=== PATIENT | female | born 1945 | race Caucasian/White ===

== ENCOUNTER 2022-02-12 09:24 | Day surgery (SDC) | payer MEDICARE ==
[2022-02-11 13:37] LABS: BASOPHILS % (AUTO) 0.9 % (0.0-5.0); EOSINOPHILS % (AUTO) 1.8 % (0.0-8.0); LYMPHOCYTES % (AUTO) 21.9 % (21.0-51.0); MEAN CORPUSCULAR HEMOGLOBIN 29.8 pg (27.0-33.0); MEAN CORPUSCULAR HGB CONC 31.5 g/dL (32.0-36.0); MEAN CORPUSCULAR VOLUME 94.6 fL (79-99); NEUTROPHILS % (AUTO) 64.2 % (40.0-77.0); PLATELET COUNT (AUTO) 217 K/uL (130-400); RED BLOOD CELL COUNT(AUTO) 4.23 MIL/uL (4.00-5.50); RED CELL DISTRIBUTION WIDTH 14.7 % (11.0-15.5); WHITE BLOOD COUNT (AUTO) 5.5 K/uL (4.8-10.8)
[2022-02-11 13:53] VITALS: BP 130/64
[2022-02-11 13:55] LABS: APPEARANCE,URINE Clear (CLEAR); BILIRUBIN,URINE Negative (NEGATIVE); COLOR,URINE Yellow (YELLOW); GLUCOSE, URINE (UA) Negative (NEGATIVE); KETONES,URINE Negative (NEGATIVE); LEUKOCYTE ESTERASE ,URINE Negative (NEGATIVE); NITRATE,URINE Negative (NEGATIVE); OCCULT BLOOD,URINE Negative (NEGATIVE); PH,URINE 6.5 (5.0-8.0); PROTEIN,URINE Negative (NEGATIVE); UROBILINOGEN,URINE 0.2 mg/dL (0.2-1.0)
[2022-02-11 13:57] LABS: CREATININE 0.8 mg/dL (0.5-1.5); POTASSIUM 4.2 mmol/L (3.5-5.1)
[2022-02-11 13:58] LABS: INR 2.58 (0.85-1.15); PROTHROMBIN TIME 25.8 SEC (9.6-11.6)
[2022-02-12] VITALS (21 sets, daily range): BP systolic 106–138; BP diastolic 50–68
[~2022-02-12] VITALS: Ht 172.7 cm; Wt 70.5 kg
[~2022-02-12 09:24] MED LIST: 0.9% NACL 500ML IV.SOLN 500 ML IV SCH; AEC81 PO; ALEN70TA80 PO; CALCIUM PO; CHOL2000 PO; DILT120C95 PO; FURO20TA6 PO; GLUC-29 PO; LEVO125T11 PO; POTASSIUM PO; SENN-107 PO; SOTA80TA PO; TUMERIC PO; UBID100C45 PO; WARF-57 PO
[2022-02-12] MEDS ORDERED: 0.9%NACL 1000ML 1,000 ML IV ONE (12:51)
[2022-02-12 12:53] LABS: INR 1.96 (0.85-1.15); PROTHROMBIN TIME 20.1 SEC (9.6-11.6)
[2022-02-12] MEDS ORDERED: NITROGLYCERIN 50MG VIAL ONE (14:23)
[2022-02-12] MEDS ORDERED: SODIUM BICARB 50MEQ 50ML VIAL 50 ML ONE (14:23)
[2022-02-12] MEDS ORDERED: IOHEXOL-350 50ML VIAL IV ONE (14:23)
[2022-02-12] MEDS ORDERED: MIDAZOLAM HCL 1 MG/ML 2ML VIAL ONE (14:24)
[2022-02-12] MEDS ORDERED: IOHEXOL 350 MG/ML 100ML INFUS..BTL IV ONE (14:24)
[2022-02-12] MEDS ORDERED: FENTANYL CITRATE PF 50 MCG/1 ML 2ML VIAL ONE (14:24)
[2022-02-12] MEDS ORDERED: LIDOCAINE HCL 400MG/20ML VIAL ONE (14:25)
[2022-02-12] MEDS ORDERED: FLUMAZENIL 0.1MG/1ML 5ML VIAL IV ONE (15:43)
[2022-02-12] MEDS ORDERED: 0.9% NACL 500ML IV.SOLN 500 ML IV SCH (16:00)
== END 2022-02-12 19:58 | disposition home or self-care (01) ==
LOC: DAH 09:24
PROVIDERS: ATTEND Internal Medicine Cardiovascular Disease
DX: I25.10 Atherosclerotic heart disease of native coronary artery without angina pectoris (principal); I27.20 Pulmonary hypertension, unspecified; I48.91 Unspecified atrial fibrillation; I50.32 Chronic diastolic (congestive) heart failure; E03.9 Hypothyroidism, unspecified; E11.9 Type 2 diabetes mellitus without complications; I25.2 Old myocardial infarction; Z79.01 Long term (current) use of anticoagulants; Z95.2 Presence of prosthetic heart valve; Z88.6 Allergy status to analgesic agent; Z88.8 Allergy status to other drugs, medicaments and biological substances; Z88.1 Allergy status to other antibiotic agents; Z86.73 Personal history of transient ischemic attack (TIA), and cerebral infarction without residual deficits; Z86.16 Personal history of COVID-19; Z90.710 Acquired absence of both cervix and uterus; Z79.899 Other long term (current) drug therapy; Z98.890 Other specified postprocedural states; Z82.49 Family history of ischemic heart disease and other diseases of the circulatory system
CPT/HCPCS: 36415 ×2; 71045; 80048; 81003; 82948 ×2; 85025; 85610 ×2; 85730 ×2; 93005; 93460; A4215; A4216; A4221; A4222; A4223 ×3; A4606; A4663; C1760 ×2; C1769; C1894 ×3; J1644 ×2; J2250; J3010; J3490 ×4; J7030; Q9965; Q9967 ×2; 99156; 99157

== ENCOUNTER → 2022-12-18 | Outpatient (CLI) | payer MEDICARE ==
[~2022-12-18] MED LIST changes: -0.9% NACL 500ML IV.SOLN 500 ML IV SCH
[2022-12-18 12:34] LABS: CREATININE 0.9 mg/dL (0.5-1.5); POTASSIUM 3.9 mmol/L (3.5-5.1)
== END | disposition home or self-care (01) ==
LOC: LAB 10:02
PROVIDERS: ATTEND Internal Medicine Cardiovascular Disease
DX: I27.20 Pulmonary hypertension, unspecified (principal); I48.0 Paroxysmal atrial fibrillation
CPT/HCPCS: 36415; 80048; 83880

== ENCOUNTER 2023-10-23 14:52 | Emergency (ER) | payer MEDICARE ==
[~2023-10-23] VITALS: Ht 170.2 cm; Wt 69.4 kg
[2023-10-23 18:55] VITALS: BP 145/82; PULSE 75; RESP 16; O2SAT 97
== END 2023-10-23 18:56 | disposition home or self-care (01) ==
LOC: EDH 14:52
DX: S09.8XXD Other specified injuries of head, subsequent encounter (principal); Z48.02 Encounter for removal of sutures; X58.XXXD Exposure to other specified factors, subsequent encounter
CPT/HCPCS: 99281

== ENCOUNTER → 2024-11-15 | Outpatient (CLI) | payer MEDICARE ==
[2024-11-15 12:26] LABS: BASOPHILS # (AUTO) 0.06 K/uL (0.00-0.20); BASOPHILS % (AUTO) 0.8 % (0.0-5.0); EOSINOPHILS # (AUTO) 0.38 K/uL (0.00-0.70); EOSINOPHILS % (AUTO) 5.3 % (0.0-8.0); HEMATOCRIT 42.2 % (36-48); IMMATURE GRANULOCYTE ABSOLUTE 0.02 K/uL (0-1); LYMPHOCYTES # (AUTO) 1.2 K/uL (1.0-4.8); LYMPHOCYTES % (AUTO) 16.8 % (21.0-51.0); MEAN CORPUSCULAR VOLUME 96.8 fL (79-99); MONOCYTES # (AUTO) 0.8 K/uL (0.1-1.0); MONOCYTES % (AUTO) 10.6 % (3.0-13.0); NEUTROPHILS # (AUTO) 4.7 K/uL (1.8-7.7); NEUTROPHILS % (AUTO) 66.2 % (40.0-77.0); PLATELET COUNT (AUTO) 216 K/uL (130-400); RED BLOOD CELL COUNT(AUTO) 4.36 MIL/uL (4.00-5.50); RED CELL DISTRIBUTION WIDTH 14.6 % (11.0-15.5); WHITE BLOOD COUNT (AUTO) 7.2 K/uL (4.8-10.8)
[2024-11-15 12:50] LABS: ALBUMIN 3.5 g/dL (3.5-5.0); BILIRUBIN,TOTAL 0.4 mg/dL (0.2-1.0); CREATININE 0.8 mg/dL (0.5-1.0); MAGNESIUM 2.2 mg/dL (1.80-2.40); POTASSIUM 4.2 mmol/L (3.5-5.1)
[2024-11-15 13:05] LABS: B-TYPE NATRIURETIC PEPTIDE 55 pg/mL (0-100)
== END | disposition home or self-care (01) ==
LOC: LAB 08:57
PROVIDERS: ATTEND Internal Medicine Cardiovascular Disease
DX: I48.0 Paroxysmal atrial fibrillation (principal); G47.33 Obstructive sleep apnea (adult) (pediatric); D68.59 Other primary thrombophilia; Z95.2 Presence of prosthetic heart valve; Z79.899 Other long term (current) drug therapy
CPT/HCPCS: 36415; 80053; 80061; 83735; 83880; 85025

== ENCOUNTER → 2025-01-30 | Outpatient (CLI) | payer MEDICARE ==
[2025-01-30 12:12] LABS: BASOPHILS # (AUTO) 0.07 K/uL (0.00-0.20); BASOPHILS % (AUTO) 1.2 % (0.0-5.0); EOSINOPHILS % (AUTO) 6.7 % (0.0-8.0); IMMATURE GRANULOCYTE ABSOLUTE 0.01 K/uL (0-1); LYMPHOCYTES # (AUTO) 1.6 K/uL (1.0-4.8); LYMPHOCYTES % (AUTO) 25.8 % (21.0-51.0); MEAN CORPUSCULAR HEMOGLOBIN 29.6 pg (27.0-33.0); MEAN CORPUSCULAR HGB CONC 32.1 g/dL (32.0-36.0); MEAN CORPUSCULAR VOLUME 92.1 fL (79-99); MONOCYTES # (AUTO) 0.8 K/uL (0.1-1.0); NEUTROPHILS # (AUTO) 3.2 K/uL (1.8-7.7); NEUTROPHILS % (AUTO) 53.1 % (40.0-77.0); PLATELET COUNT (AUTO) 224 K/uL (130-400); RED BLOOD CELL COUNT(AUTO) 4.67 MIL/uL (4.00-5.50); RED CELL DISTRIBUTION WIDTH 15.2 % (11.0-15.5)
== END | disposition home or self-care (01) ==
LOC: LAB 11:16
PROVIDERS: ATTEND Internal Medicine Cardiovascular Disease
DX: I48.0 Paroxysmal atrial fibrillation (principal); D68.59 Other primary thrombophilia
CPT/HCPCS: 36415; 85025

== ENCOUNTER 2025-11-06 19:08 | Emergency (ER) | payer MEDICARE ==
[~2025-11-06] VITALS: Ht 170.2 cm; Wt 68.9 kg
[2025-11-06 19:11] VITALS: BP 139/74
--- NOTE | 2025-11-06 19:18 | ERN ---
ED Note History of Present Illness Stated Complaint: C/O DIZZINESS WITH NEAR SYNCOPE EPISODE Chief Complaint: Dizzy/Light Headed Time Seen by MD: 19:10 Dictation: PATIENT IS AN 79-YEAR-OLD FEMALE HERE WITH HER WHO WAS WALKING IN HER HOME WHEN SHE HAD A NEAR SYNCOPAL EPISODE. SHE STATES SHE IS JUST SUDDENLY FELT VERY WEAK. SHE EASED HERSELF WITH THE GROUND WITHOUT A FALL. HE DENIES ANY VLADIMIR ST PAIN BACK PAIN SOB NO HEADACHE. DENIES ANY HISTORY OF PRIOR CVA, ANEMIA ELECTROLYTE IMBALANCE. 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 NIH SCORE IS 0 IN TRIAGE HE IS COMPLETELY INTACT TO ACCORDING TO . FEELS VERY LIGHTHEADED Allergies: Coded Allergies: Sulfa (Sulfonamide Antibiotics) (Unverified Allergy, Unknown, 12/29/21) codeine (Unverified Allergy, Unknown, 12/29/21) erythromycin base (Unverified Allergy, Unknown, 12/29/21) Home Meds Active Scripts Sotalol HCl (Sotalol) 80 Mg Tablet, 80 MG PO BID for 30 Days, #60 TAB 0 Refills Prov:KARAN PANIAGUA TEST AND BALANCE ENGINEER 01/02/22 Reported Medications Warfarin Sodium (Warfarin Sodium) 5 Mg Tablet, 2.5 MG PO DAILYDINNER, TAB 02/11/22 Sennosides/Docusate Sodium (Stool Softener Tablet) 1 Each Tablet, 1 EACH PO TID, TAB 02/11/22 Glucosa Ortega 2Kcl/Chondroitin Ortega (Glucosamine & Chondroitin Cap) 500 Mg-400 Mg Capsule, 1 EACH PO DAILY, CAP 02/11/22 [Tumeric] No Conflict Check, 1000 MG PO DAILY 02/11/22 Ubidecarenone (Co Q-10) 100 Mg Capsule, 100 MG PO DAILY, CAP 02/11/22 [Calcium] No Conflict Check, 1200 MG PO DAILY 02/11/22 [Potassium ] No Conflict Check, 99 MG PO DAILY 02/11/22 Furosemide (Lasix 20Mg Tab) 20 Mg Tablet, 20 MG PO DAILY, TAB 12/31/21 Alendronate Sodium (Alendronate Sodium) 70 Mg Tablet, 70 MG PO QWEEK, TAB 12/31/21 Cholecalciferol (Vitamin D3) (Vitamin D3) 50 Mcg (2000 Unit) Capsule, 50 MCG PO DAILY, CAP 12/31/21 Aspirin (ASPIRIN 81 MG ECTAB) 81 Mg Ectab, 81 MG PO DAILY, TAB.EC 12/31/21 Levothyroxine Sodium (Levothyroxine Sodium) 125 Mcg Tablet, 125 MCG PO DAILY, TAB 12/31/21 Diltiazem HCl (Diltiazem 24Hr Cd) 120 Mg Cap.er.24h, 120 MG PO DAILY, CAPSULE. 12/31/21 Past Medical History Past Medical History: Diabetes-Type II Additional Past Medical Hx: PACER Surgical History: Pacer/AICD, Other Surgical History Other: HEART VALVE REPLACEMENT Social History: Negative, Lives with family History: Not Applicable RN Note Reviewed/Agreed w/PFSH: Yes Review of System Dictation CONSTITUTIONAL: NEGATIVE EXCEPT FOR HPI HEAD/FACE: NEGATIVE EXCEPT FOR HPI EENT: NEGATIVE EXCEPT FOR HPI RESPIRATORY: NEGATIVE EXCEPT FOR HPI GASTROINTESTINAL/ABDOMINAL: NEGATIVE EXCEPT FOR HPI GENITOURINARY: NEGATIVE EXCEPT FOR HPI MUSCULOSKELETAL: NEGATIVE EXCEPT FOR HPI INTEGUMENTARY: NEGATIVE EXCEPT FOR HPI NEUROLOGICAL/PSYCH: NEGATIVE EXCEPT FOR HPI NEAR-SYNCOPE HEMATOLOGIC/LYMPHATIC: NEGATIVE EXCEPT FOR HPI ALL SYSTEMS NEGATIVE, EXCEPT NOTED ABOVE. 13 POINT REVIEW OF SYSTEMS ASSESSED AND ALL NEGATIVE EXCEPT FOR ABOVE. Initial Vital Sign VS Vital Signs Date Time Temp Pulse Resp B/P (MAP) Pulse Ox O2 Delivery O2 Flow Rate FiO2 11/06/25 19:11 98.8 63 20 139/74 99 Room Air 11/06/25 19:37 0 21 Physical Exam Dictation VITAL SIGNS REVIEWED GENERAL APPEARANCE: ALERT, ORIENTED X 3, NO ACUTE DISTRESS, WELL DEVELOPED, NOURISHED. MILDLY DECONDITIONED HEAD AND FACE: NON-TRAUMATIC. EYES: PERRL, PINK CONJUNCTIVAS, EYELID NO TRAUMA, ANTERIOR CHAMBER WITH ARCUS SENILIS. EARS: PINNAS INTACT AND NO SIGNS OF TRAUMA OR ERYTHEMA EAR CANALS CLEAR AND NO DISCHARGE TM NO ERYTHEMA NOSE: NO DISCHARGE, NO BLEEDING. OROPHARYNX: MOUTH NORMAL, TONGUE PINK, PHARYNX CLEAR,NO ERYTHEMA, TONSILS NO EXUDATES, NO ABSCESSES NOTED, MUCOUS MEMBRANE MOIST NECK: SUPPLE, NON-TENDER, NO THYROMEGALY, NO MASSES, NO JVD, NO BRUITS BREAST:DEFERRED CHEST:NO TENDERNESS, NO CREPITUS, NO PARADOXICAL MOVEMENT, NO RETRACTIONS LUNGS:CLEAR, WELL-VENTILATED, SYMMETRIC, NO RALES, NO WHEEZING, NO RHONCHI, NO STRIDOR, GOOD BREATH SOUNDS BILATERALLY HEART: REGULAR RATE, REGULAR RHYTHM, NO MURMUR, NO GALLOPS VASCULAR: NO PERIPHERAL EDEMA, ABDOMEN: SOFT, POSITIVE BOWEL SOUNDS, NONDISTENDED, NO GUARDING, NONTENDER, NO REBOUND, NO MASSES NO HEPATOMEGALY, NO SPLENOMEGALY, NO ADAME'S SIGN, NO HERNIAS. RECTAL: DEFERRED GENITAL: DEFERRED NEUROLOGICAL: NORMAL SPEECH, MOTOR FUNCTION INTACT, SENSORY FUNCTION INTACT NIH IS 0 MUSCULOSKELETAL: NECK NONTENDER, FULL RANGE OF MOTION, BACK NONTENDER, FULL RANGE OF MOTION, EXTREMITIES: NONTENDER, FULL RANGE OF MOTION SKIN: COLOR PINK, DRY, NO TURGOR, NO RASH, NO LACERATIONS, NO ABRASIONS, NO CONTUSIONS. LYMPHATIC: DEFERRED Results (Laboratory/Radiology) Laboratory/Radiology Laboratory Tests Test 11/06/25 19:27 White Blood Count 6.7 K/uL (4.8-10.8) Red Blood Count 4.61 MIL/uL (4.00-5.50) Hemoglobin 13.9 g/dL (12.0-16.0) Hematocrit 43.2 % (36-48) Mean Corpuscular Volume 93.7 fL (79-99) Mean Corpuscular Hemoglobin 30.2 pg (27.0-33.0) Mean Corpuscular Hemoglobin Concent 32.2 g/dL (32.0-36.0) Red Cell Distribution Width 15.1 % (11.0-15.5) Platelet Count 197 K/uL (130-400) Mean Platelet Volume 10.0 fL (7.5-10.5) Immature Granulocyte % (Auto) 0.3 % (0-1) Neutrophils (%) (Auto) 66.1 % (40.0-77.0) Lymphocytes (%) (Auto) 18.6 % (21.0-51.0) L Monocytes (%) (Auto) 10.3 % (3.0-13.0) Eosinophils (%) (Auto) 3.7 % (0.0-8.0) Basophils (%) (Auto) 1.0 % (0.0-5.0) Neutrophils # (Auto) 4.4 K/uL (1.8-7.7) Lymphocytes # (Auto) 1.3 K/uL (1.0-4.8) Monocytes # (Auto) 0.7 K/uL (0.1-1.0) Eosinophils # (Auto) 0.25 K/uL (0.00-0.70) Basophils # (Auto) 0.07 K/uL (0.00-0.20) Absolute Immature Granulocyte (auto 0.02 K/uL (0-1) Nucleated Red Blood Cells 0.0 % (0.0-0.19) Sodium Level 139 mmol/L (136-145) Potassium Level 4.1 mmol/L (3.5-5.1) Chloride Level 103 mmol/L (101-111) Carbon Dioxide Level 29 mmol/L (21-32) Blood Urea Nitrogen 18 mg/dL (7-18) Creatinine 0.8 mg/dL (0.5-1.0) Glomerular Filtration Rate Calc 74 mL/min (>90) Random Glucose 143 mg/dL (70-105) H Total Calcium 9.0 mg/dL (8.5-10.1) Magnesium Level 2.10 mg/dL (1.80-2.40) Troponin I High Sensitivity 97 ng/L (4-50) *H B-Type Natriuretic Peptide 48 pg/mL (0-100) EXAM: CR Chest, 1 View. CLINICAL HISTORY: SOB COMPARISON: None provided. FINDINGS: LUNGS: There is no mass, infiltrate, or acute pulmonary abnormality. Mild bibasilar atelectasis. PLEURAL SPACES: No pleural effusion or pneumothorax. MEDIASTINUM: AICD leads overlie the right atrium and right ventricle. Aortic valve noted. The cardiomediastinal silhouette is within normal limits. BONES: No acute osseous abnormality. IMPRESSION: No acute cardiopulmonary pathology is evident. /[place] N: DIZZINESS AND NEAR-SYNCOPE SUDDEN ONSET ORDERING PHYSICIAN: CHAD SALGADO PROCEDURE: HEAD WO - CT HEAD/BRAIN W/O CONTRAST EXAM: CT Head Without IV contrast. CLINICAL HISTORY: Dizziness and near-syncope. TECHNIQUE: Axial computed tomography images of the head/brain without intravenous contrast. COMPARISON: None provided. FINDINGS: BRAIN: Age-appropriate cerebral atrophy. Mild periventricular chronic small vessel ischemic changes. No evidence of acute hemorrhage. No mass lesion. No CT evidence for acute territorial infarct. No midline shift or extra-axial collections. VENTRICLES: No hydrocephalus. ORBITS: The orbits are unremarkable. SINUSES AND MASTOIDS: The paranasal sinuses and mastoid air cells are clear. BONES: No fracture. SOFT TISSUES: Unremarkable. IMPRESSION: No acute intracranial abnormality. Age-appropriate cerebral atrophy and chronic small vessel ischemic changes. /[facility] Reviewed?: Yes EKG Comment: 1921/EKG atrial fibrillation with controlled rate/ventricular rate 77//occasional PVCs. No acute changes. ED Course ED Course Orders Procedure Category Date Status Time Ct Head/Brain W/O CT 11/06/25 Resulted Contrast 19:15 B-Type Natriuretic LAB 11/06/25 Complete Peptide 19:15 Cbc With Differential LAB 11/06/25 Complete 19:15 Chest 1vw RAD 11/06/25 Resulted 19:15 12 Lead Ekg Tracing- EKG 11/06/25 Resulted Technical 19:15 0.9%Nacl 1000ml (Ns PHA 11/06/25 Complete 1000ml) 19:30 Magnesium LAB 11/06/25 Complete 19:15 Troponin I High LAB 11/06/25 Complete Sensitivity 19:15 Urinalysis Profile LAB 11/06/25 Logged 19:15 Basic Metabolic Panel LAB 11/06/25 Complete 19:15 Orthostatic Vital CPOE 11/06/25 Transmitted Signs 20:21 Current Medications Medications (Trade) Dose Ordered Sig/Wojciech Route PRN Reason Start Time Stop Time Status Last Admin Dose Admin Sodium Chloride 1,000 ml @ 0 mls/hr ONCE ONCE IV 11/06/25 19:30 11/06/25 19:31 DC 11/06/25 19:47 Vital Signs Date Time Temp Pulse Resp B/P (MAP) Pulse Ox O2 Delivery O2 Flow Rate FiO2 11/06/25 19:37 98.8 75 18 99 Room Air* 0 21 11/06/25 19:11 98.8 63 20 139/74 99 Room Air 2125/PATIENT IS HEMODYNAMICALLY STABLE AND NEUROLOGICALLY INTACT. SPOKE WITH THE RN TAKING CARE PATIENT AND ORTHOSTATICS WERE DONE AND THEY ARE NEGATIVE. WHILE I WAS SPEAKING TO THE HE ADVISED ME THAT PATIENT WAS USING A NEW MEDICATION ON HER FACE FOR ACTINIC KERATOSIS CALLED FLUOOURACIL. HE SAID HE HAS SPOKEN TO HIS DAUGHTER CARMEN WHO SAID SHE WOULD USE THAT ON HER SKIN FROM THE SAME EAR NOSE THROAT SURGEON IN [place] AND WAS EXPERIENCING MANY OF THE SYMPTOMS HER MOTHER WAS COMPLAINING OF. REVIEW OF THE LITERATURE DEMONSTRATES THAT UNUSUAL TIREDNESS WEAKNESS DIZZINESS ETC. HIS ALL A SIDE EFFECT OF THIS DRUG. PATIENT STATES SHE IS PLACING ON SEVERAL PLACES ON HER SKIN AND USING PROBABLY COOL MORE THAN SHE SHOULD BE DOING I STRONGLY ADVISED PATIENT TO HOLD HER DOSE IN THE MORNING AND CALL HER EAR NOSE THROAT SURGEON IN [place] AND DISCUSSED BEFORE SHE STARTED REUSING IT. SHE HAS BEEN ON IT FOR THREE WEEKS AND WAS ADVISED ONLY TO USE IT FOR 3-4 WEEKS. PATIENT WISHES TO BE DISCHARGED HOME AND NO ADMISSION WE WILL FINDINGS. ADDITIONALLY PATIENT HAD A TROPONIN OF 97. REVIEW OF THE MEDICAL RECORD SHOW HER TROPONINS BEEN HIGH 500 IN THE PAST. SHE IS NOT COMPLAINING OF ANY CHEST PAIN AND THIS DOES NOT REPRESENT ACS OR AMI. HEART Score Response (Comments) Value EKG: Repolarization changes 1 Age: > 65yrs (+2) 2 Risk Factors: 1-2 risk factors (+1) 1 Initial Troponin: 1-3x Normal Limit (+1) 1 Total 5 Medical Decision Making MDM MDM: DIFFERENTIAL DIAGNOSIS: CVA/BLEED/ELECTROLYTE IMBALANCE/DEHYDRATION/ACS/AMI/ARRHYTHMIA/ORTHOSTATIC CHANGES RATIONALE: TESTS CONSIDERED AND ORDERED SECONDARY TO SHARED DECISION MAKING INCLUDE: LABS/EKG/RADIOLOGY PREVIOUS OUTSIDE RECORDS REVIEWED: OLD ER VISITS. RISK OF COMPLICATION AND/OR MORBIDITY OR MORTALITY OF PATIENT MANAGEMENT: NONE MEDICATIONS-PER MEDICATION RECONCILIATION NEED FOR HOSPITALIZATION: PATIENT DOES NOT MEET CRITERIA FOR HOSPITALIZATION. PATIENT REFUSED AND WISHES TO GO HOME. NEED FOR EMERGENCY MAJOR/MINOR SURGERY: NO THERE ARE NO SOCIAL CONCERNS WITH THIS PATIENT. PRESCRIPTION DRUG MANAGEMENT NONE PRESCRIPTIONS WILL INCLUDE SYMPTOMATIC CARE PATIENT'S PRIOR EXTERNAL MEDICAL RECORDS FROM OTHER ER VISITS WERE REVIEWED BY ME INDICATED. PRIOR TESTING AND RESULTS FROM PREVIOUS VISITS WERE REVIEWED. PRIOR TESTS WERE TAKEN INTO ACCOUNT WITH MEDICAL DECISION MAKING AND RESOURCE UTILIZATION, INDEPENDENT HISTORIAN/HISTORIANS WERE USED TO OBTAIN COMPLETE MEDICAL HISTORY. I INDEPENDENTLY INTERPRETED THE TEST THAT WERE PERFORMED, RESULTS WERE REVIEWED BY ME AND CONSIDERED FINDINGS ON RADIOLOGY IF ORDERED. MEDICAL MANAGEMENT AND EXAMINATION INTERPRETATION DISCUSSIONS WERE HAD BY ME WITH OTHER QUALIFIED HEALTHCARE PROFESSIONALS INDICATED FOR THE PATIENT'S CARE. DX & DISP Disposition: Discharge Departure Impression: Primary Impression: Medication side effects Additional Impressions: Dizziness, Hyperglycemia, Elevated troponin level not due to acute coronary syndrome Condition: Stable Additional Instructions: FOLLOW-UP WITH PRIMARY CARE PROVIDER IN 1 TO 2 DAYS. TAKE MEDICATIONS DIRECTED HERE IN THE EMERGENCY ROOM. OKAY TO CONTINUE HOME MEDICATIONS UNLESS OTHERWISE DISCUSSED DURING YOUR VISIT IN THE EMERGENCY ROOM TODAY. RETURN TO YOUR NEAREST EMERGENCY ROOM IF SYMPTOMS WORSEN OR IF THERE IS NO IMPROVEMENT. CALL 911 IF YOU NEED IMMEDIATE ASSISTANCE. TAKE TYLENOL OR MOTRIN [id number] NEEDED AND IF NO CONTRAINDICATIONS ARE PRESENT. INCREASE ORAL HYDRATION. A WOUND CULTURE OR URINE CULTURE WAS ORDERED HERE IN THE EMERGENCY ROOM DEPARTMENT PLEASE FOLLOW-UP WITH PRIMARY CARE PROVIDER AND ADVISE THEM TO GET REPEAT PORTS FROM OUR FACILITY. IF YOU HAD ANY ZAKI WRAP/SPLINTS THAT WERE APPLIED HERE, PLEASE DO NOT REMOVE THEM UNTIL YOU SEE YOUR PRIMARY CARE OR SPECIALTY. HOLD FLUROURACIL TOMORROW AND AND CONSULT YOUR EAR NOSE THROAT SURGEON WHO PRESCRIBED IT FOR FURTHER FEEDBACK AND INFORMATION RETURN TO THE EMERGENCY ROOM IF ANY NEW CHANGES OR COMPLAINTS. . Referrals: AMAYA CATHERINE MD (PCP) Time of Disposition: 21:32 I have reviewed the case, and I agree with, Diagnosis and Plan CHAD SALGADO [facility] Nov 06, 2025 19:18
--- NOTE | 2025-11-06 19:24 | EKG ---
[facility] Test Date: 2025-11-06 Test Time: 19:21:25 Pat Name: TIKA RODRIGUEZ Department: [facility] Room: Gender: F Inspector Plating: [id number] : [id number] Requested By: CHAD SALGADO Order Number: [id number] Reading MD: Will Luque Measurements Intervals [place] Rate: 143 P: 0 WV: 0 QRS: 37 QRSD: 126 T: 213 QT: 383 QTc: 591 Interpretive Statements Sinus rhythm PACs Left bundle branch block Compared to ECG 10/13/2023 19:44:36 Ventricular premature complex(es) now present Left bundle-branch block now present Atrial-paced complex(es) or rhythm no longer present First degree AV block no longer present Electronically Signed On 11-06-2025 20:23:56 TRANSLATOR INTERPRETER by Will Luque Please click the below link to view image of tracing.
[2025-11-06 19:34] LABS: IMMATURE GRANULOCYTE ABSOLUTE 0.02 K/uL (0-1); NUCLEATED RED BLOOD CELLS 0.0 % (0.0-0.19); PLATELET COUNT (AUTO) 197 K/uL (130-400); RED BLOOD CELL COUNT(AUTO) 4.61 MIL/uL (4.00-5.50); RED CELL DISTRIBUTION WIDTH 15.1 % (11.0-15.5); WHITE BLOOD COUNT (AUTO) 6.7 K/uL (4.8-10.8)
[2025-11-06 19:37] VITALS: PULSE 75; RESP 18; TEMP 98.8; O2SAT 99
[2025-11-06] MEDS: 0.9%NACL 1000ML 1,000 ML IV ONE (19:47)
--- NOTE | 2025-11-06 20:04 | HMCIMG ---
EXAM: CR Chest, 1 View. CLINICAL HISTORY: SOB COMPARISON: None provided. FINDINGS: LUNGS: There is no mass, infiltrate, or acute pulmonary abnormality. Mild bibasilar atelectasis. PLEURAL SPACES: No pleural effusion or pneumothorax. MEDIASTINUM: AICD leads overlie the right atrium and right ventricle. Aortic valve noted. The cardiomediastinal silhouette is within normal limits. BONES: No acute osseous abnormality. IMPRESSION: No acute cardiopulmonary pathology is evident. /[place]
--- NOTE | 2025-11-06 20:05 | HMCIMG ---
EXAM: CT Head Without IV contrast. CLINICAL HISTORY: Dizziness and near-syncope. TECHNIQUE: Axial computed tomography images of the head/brain without intravenous contrast. COMPARISON: None provided. FINDINGS: BRAIN: Age-appropriate cerebral atrophy. Mild periventricular chronic small vessel ischemic changes. No evidence of acute hemorrhage. No mass lesion. No CT evidence for acute territorial infarct. No midline shift or extra-axial collections. VENTRICLES: No hydrocephalus. ORBITS: The orbits are unremarkable. SINUSES AND MASTOIDS: The paranasal sinuses and mastoid air cells are clear. BONES: No fracture. SOFT TISSUES: Unremarkable. IMPRESSION: No acute intracranial abnormality. Age-appropriate cerebral atrophy and chronic small vessel ischemic changes. /[place]
[2025-11-06 20:13] LABS: SODIUM SERUM 139.0 mmol/L (136-145)
[2025-11-06 20:14] LABS: CREATININE 0.8 mg/dL (0.5-1.0); GLOMERULAR FILTR. RATE CALC 74.0 mL/min (>90); GLUCOSE,RANDOM 143.0 mg/dL (70-105); UREA NITROGEN, BLOOD 18.0 mg/dL (7-18)
--- NOTE | 2025-11-06 21:12 | NUR ---
ORTHO VS DONE- NEGATIVE
== END 2025-11-06 21:45 | disposition home or self-care (01) ==
LOC: EDH 19:08
DX: R42 Dizziness and giddiness (principal); T50.995A Adverse effect of other drugs, medicaments and biological substances, initial encounter; E11.65 Type 2 diabetes mellitus with hyperglycemia; R79.89 Other specified abnormal findings of blood chemistry; I25.10 Atherosclerotic heart disease of native coronary artery without angina pectoris; Z88.1 Allergy status to other antibiotic agents; Z88.5 Allergy status to narcotic agent; Z95.2 Presence of prosthetic heart valve; Z88.2 Allergy status to sulfonamides; Z79.899 Other long term (current) drug therapy; Z79.890 Hormone replacement therapy; Z79.82 Long term (current) use of aspirin; Z95.810 Presence of automatic (implantable) cardiac defibrillator; Y92.89 Other specified places as the place of occurrence of the external cause
CPT/HCPCS: 99285; 96360; 70450; 71045; 96361; 83735; 84484; 80048; 83880; 85025; 36415; 93005; J7030